=== PATIENT | male | born 1960 | race Hispanic/Latino ===

== ENCOUNTER → 2017-09-17 | Outpatient (CLI) | payer MEDICARE ==
[~2017-09-17] VITALS: Ht 177.8 cm; Wt 89.4 kg
[~2017-09-17] MED LIST: AEC81 PO; AMLO10TA2 PO; ATOR20TA65 PO; CLON0.1T PO; CLOP75TA14 PO; FURO20TA6 PO; HYDR-4153 PO; ISOS30TA6 PO; METO-391 PO; PANT40TA25 PO; REGADENOSON 0.4 MG/5 ML PF SYG IVP SCH
== END | disposition home or self-care (01) ==
LOC: SHCH 09:47
PROVIDERS: ATTEND Internal Medicine Cardiovascular Disease
DX: R09.89 Other specified symptoms and signs involving the circulatory and respiratory systems (principal); R07.9 Chest pain, unspecified
CPT/HCPCS: 78452; 93017; 93880; 96374; A9500 ×2; J2785

== ENCOUNTER → 2017-09-24 | Outpatient (CLI) | payer MEDICARE ==
[~2017-09-24] MED LIST changes: -REGADENOSON 0.4 MG/5 ML PF SYG IVP SCH
== END | disposition home or self-care (01) ==
LOC: SHCH 13:27
PROVIDERS: ATTEND Internal Medicine Cardiovascular Disease
DX: R07.9 Chest pain, unspecified (principal)
CPT/HCPCS: 93306

== ENCOUNTER 2017-10-28 05:55 | Inpatient (IN) | payer MEDICARE ==
[2017-10-26 14:30] VITALS: BP 148/79
[2017-10-26 14:52] LABS: BASOPHILS % (AUTO) 0.2 % (0.0-5.0); EOSINOPHILS % (AUTO) 0.7 % (0.0-8.0); HEMATOCRIT 38.9 % (42-54); LYMPHOCYTES % (AUTO) 9.7 % (21.0-51.0); MEAN CORPUSCULAR HEMOGLOBIN 28.9 pg (27.0-33.0); MEAN CORPUSCULAR HGB CONC 34.3 g/dL (32.0-36.0); MEAN CORPUSCULAR VOLUME 84.3 fL (79-99); MONOCYTES % (AUTO) 5.6 % (3.0-13.0); NEUTROPHILS % (AUTO) 83.8 % (40.0-77.0); NUCLEATED RED BLOOD CELLS 0.1 % (0.0-0.19); PLATELET COUNT (AUTO) 299 K/uL (130-400); RED BLOOD CELL COUNT(AUTO) 4.61 MIL/uL (4.50-6.20); RED CELL DISTRIBUTION WIDTH 14.3 % (11.0-15.5); WHITE BLOOD COUNT (AUTO) 10.3 K/uL (4.8-10.8)
[2017-10-26 15:00] LABS: CREATININE 1.3 mg/dL (0.5-1.5); POTASSIUM 3.8 mmol/L (3.5-5.1)
[2017-10-26 15:04] LABS: INR 0.95 (0.85-1.15); PARTIAL THROMBOPLASTIN TIME 27.6 SEC (26.3-35.5)
[2017-10-26 15:31] LABS: APPEARANCE,URINE Clear (CLEAR); BILIRUBIN,URINE Negative (NEGATIVE); COLOR,URINE Yellow (YELLOW); GLUCOSE, URINE (UA) Negative (NEGATIVE); KETONES,URINE Negative (NEGATIVE); LEUKOCYTE ESTERASE ,URINE Negative (NEGATIVE); NITRATE,URINE Negative (NEGATIVE); OCCULT BLOOD,URINE Negative (NEGATIVE); PROTEIN,URINE POS 1+ (NEGATIVE)
[2017-10-26 15:46] LABS: BACTERIA,URINE Rare /HPF (None Seen); RBC,URINE None Seen /HPF (0-1); WBC,URINE 0-1 /HPF (0-1)
[~2017-10-28] VITALS: Ht 177.8 cm; Wt 87.5 kg
[2017-10-28] VITALS (12 sets, daily range): BP systolic 126–163; BP diastolic 71–96
[~2017-10-28 05:55] MED LIST changes: -CLOP75TA14 PO; -FURO20TA6 PO
[2017-10-28] MEDS ORDERED: ISOVUE-370 50ML VIAL IV ONE (07:13)
[2017-10-28] MEDS ORDERED: IOPAMIDOL-370 100 ML VIAL IV ONE (07:13)
[2017-10-28] MEDS ORDERED: HEPARIN SODIUM 1000UNIT/ML 10ML VIAL ONE ×2 (07:13→07:29)
[2017-10-28] MEDS ORDERED: LIDOCAINE HCL 2% 20ML ONE ×2 (07:14→07:40)
[2017-10-28] MEDS ORDERED: SODIUM CHLORIDE 0.9% 1000ML 1,000 ML IV ONE (07:28)
[2017-10-28] MEDS ORDERED: PANTOPRAZOLE SODIUM 40 MG TABLET.DR PO PRN (08:00)
[2017-10-28] MEDS: SODIUM CHLORIDE 0.9% 10 ML VIAL IVP SCH ×2 (08:00→16:28)
[2017-10-28] MEDS: AMLODIPINE BESYLATE 5 MG TAB PO SCH (09:58)
[2017-10-28] MEDS: ASPIRIN 81 MG EC TAB PO SCH (09:58)
[2017-10-28] MEDS: HYDRALAZINE HCL 25 MG TABLET PO SCH ×2 (09:58→21:33)
[2017-10-28] MEDS: METOPROLOL TARTRATE 25 MG TAB PO SCH ×2 (09:58→21:33)
[2017-10-28] MEDS ORDERED: CLONIDINE HCL 0.1 MG TABLET PO SCH (17:00)
[2017-10-28] MEDS ORDERED: ATORVASTATIN CALCIUM 20 MG TABLET PO SCH (17:00)
[2017-10-28] MEDS ORDERED: ISOSORBIDE MONO 30MG TAB SR PO SCH (17:00)
[2017-10-28 18:14] LABS: CHOLESTEROL 136 mg/dL (<200); HDL CHOLESTEROL 44 mg/dL (29-71); LDL DIRECT 73 mg/dL (0-99); TRIGLYCERIDES 119 mg/dL (30-200)
[2017-10-28 18:15] LABS: HEMOGLOBIN A1C 5.9 % (4.0-6.0)
[2017-10-29] VITALS (12 sets, daily range): BP systolic 108–146; BP diastolic 60–85
[2017-10-29] MEDS: SODIUM CHLORIDE 0.9% 10 ML VIAL IVP SCH ×3 (00:04→15:17)
[2017-10-29 05:41] LABS: BASOPHILS % (AUTO) 0.5 % (0.0-5.0); EOSINOPHILS % (AUTO) 1.3 % (0.0-8.0); LYMPHOCYTES % (AUTO) 19.4 % (21.0-51.0); MEAN CORPUSCULAR HEMOGLOBIN 28.4 pg (27.0-33.0); MEAN CORPUSCULAR HGB CONC 33.9 g/dL (32.0-36.0); MEAN CORPUSCULAR VOLUME 83.9 fL (79-99); MONOCYTES % (AUTO) 7.6 % (3.0-13.0); NEUTROPHILS % (AUTO) 71.2 % (40.0-77.0); PLATELET COUNT (AUTO) 280 K/uL (130-400); RED BLOOD CELL COUNT(AUTO) 4.53 MIL/uL (4.50-6.20); RED CELL DISTRIBUTION WIDTH 14.3 % (11.0-15.5)
[2017-10-29 05:50] LABS: INR 0.97 (0.85-1.15); PARTIAL THROMBOPLASTIN TIME 28.1 SEC (26.3-35.5); PROTHROMBIN TIME 10.2 SEC (9.6-11.6)
[2017-10-29 05:53] LABS: CREATININE 1.5 mg/dL (0.5-1.5); POTASSIUM 3.9 mmol/L (3.5-5.1)
[2017-10-29] MEDS ORDERED: CEFUROXIME 1.5GM+NS 100ML 100 ML IV SCH (07:00)
[2017-10-29] MEDS: CEFUROXIME SODIUM 1.5 GM VIAL IVP SCH ×3 (07:00→23:41)
[2017-10-29] MEDS ORDERED: ESMOLOL HCL 10 MG/ML 10 ML VIAL ONE (08:41)
[2017-10-29] MEDS ORDERED: NOREPINEPHRINE BITARTRATE 1 MG/1 ML ML IV ONE (08:42)
[2017-10-29] MEDS ORDERED: LIDOCAINE PF 2% 5ML ABBOJECT ONE (08:42)
[2017-10-29] MEDS ORDERED: PROTAMINE SULFATE 10 MG/ML 25ML VIAL IV ONE (08:42)
[2017-10-29] MEDS ORDERED: NEOSTIGMINE 5MG/5ML SYR IV ONE (08:42)
[2017-10-29] MEDS ORDERED: EPINEPHRINE 1 MG/ML AMPULE ONE (08:42)
[2017-10-29] MEDS ORDERED: MIDAZOLAM HCL 1 MG/ML 5ML VIAL ONE ×2 (08:42→20:43)
[2017-10-29] MEDS ORDERED: PROPOFOL 10 MG/ML 20ML VIAL IV ONE (08:42)
[2017-10-29] MEDS ORDERED: MILRINONE-D5W 20 MG/100 ML 0 ML IV ONE (08:42)
[2017-10-29] MEDS ORDERED: AMINOCAPROIC ACID 250 MG/ML 20 ML VIAL IV ONE (08:42)
[2017-10-29] MEDS ORDERED: ROCURONIUM BROMIDE 10MG/1ML 5ML VL ONE (08:42)
[2017-10-29] MEDS ORDERED: HEPARIN SODIUM 1000UNIT/ML 10ML VIAL ONE (08:42)
[2017-10-29] MEDS: AMLODIPINE BESYLATE 5 MG TAB PO SCH (09:00)
[2017-10-29] MEDS: ASPIRIN 81 MG EC TAB PO SCH (09:00)
[2017-10-29] MEDS: METOPROLOL TARTRATE 25 MG TAB PO SCH ×2 (09:00→09:02)
[2017-10-29] MEDS: HYDRALAZINE HCL 25 MG TABLET PO SCH (09:00)
[2017-10-29] MEDS ORDERED: PAPAVERINE HCL 30 MG/ML 2ML VIAL ONE (09:13)
[2017-10-29] MEDS ORDERED: BACITRACIN 50,000 UNIT VIAL ONE ×2 (09:13→20:04)
[2017-10-29] MEDS ORDERED: OCTYL 2-CYANOACRYLATE 1 EACH TP ONE (09:13)
[2017-10-29] MEDS ORDERED: NITROGLYCERIN 50 MG/D5% WATER 1 BOT ONE (09:15)
[2017-10-29] MEDS ORDERED: AMIODARONE HCL 50 MG/ML 3 ML VIAL ONE (09:15)
[2017-10-29] MEDS ORDERED: EPINEPHRINE 1 MG/ML 30ML VIAL IJ ONE (09:19)
[2017-10-29] MEDS ORDERED: SODIUM BICARB 50MEQ 50ML VIAL ONE ×7 (10:25→23:29)
[2017-10-29] MEDS ORDERED: SODIUM CHLORIDE 0.9% 1000ML 1,000 ML IV ONE (11:36)
[2017-10-29] MEDS ORDERED: FENTANYL CITRATE PF 50 MCG/1 ML 5ML AMP IV ONE ×3 (13:41→16:45)
[2017-10-29] MEDS ORDERED: HEPARIN SODIUM 10000 UNIT/ML 1ML VIAL IJ ONE (14:12)
[2017-10-29] MEDS ORDERED: THROMBIN-JMI 5000 UNIT/VIAL TP ONE (14:13)
[2017-10-29] MEDS ORDERED: SODIUM CHLORIDE 0.9% 500ML 500 ML IV SCH (15:55)
[2017-10-29] MEDS ORDERED: POTASSIUM PHOS 15 mMOL+NS250ML 250 ML IV PRN (16:00)
[2017-10-29] MEDS ORDERED: GLUCAGON 1MG KIT 1 MG ML IM PRN (16:00)
[2017-10-29] MEDS ORDERED: ACETAMINOPHEN 650 MG SUPPOSITORY RC PRN (16:00)
[2017-10-29] MEDS ORDERED: DEXTROSE 50%-WATER 50 ML DISP.SYRIN IV PRN (16:00)
[2017-10-29] MEDS ORDERED: CALCIUM GLUCONATE 1 GM in SODIUM CHLORIDE 0.9% 50 ML IV PRN (16:00)
[2017-10-29] MEDS ORDERED: MORPHINE SULFATE 4 MG/1ML SYG IV PRN ×2 (16:00)
[2017-10-29] MEDS ORDERED: ALBUMIN (HUMAN) 5% 250 ML IV PRN (16:00)
[2017-10-29] MEDS ORDERED: SODIUM CHLORIDE 0.9% 10 ML VIAL IVP PRN (16:00)
[2017-10-29] MEDS ORDERED: ACETAMINOPHEN 325 MG TAB PO PRN (16:00)
[2017-10-29] MEDS ORDERED: EPINEPHRINE 2 MG in SODIUM CHLORIDE 0.9% 250 ML IV PRN (16:00)
[2017-10-29] MEDS ORDERED: SODIUM CHLORIDE 0.9% 1000ML 1,000 ML IV SCH (16:00)
[2017-10-29] MEDS ORDERED: SODIUM CHLORIDE 0.9% 250 ML IV PRN (16:00)
[2017-10-29] MEDS ORDERED: NITROGLYCERIN 50 MG/D5% WATER 250 BOT IV SCH (16:00)
[2017-10-29] MEDS ORDERED: INSULIN REGULAR, HUMAN 3ML 100 UNIT in SODIUM CHLORIDE 0.9% 99 ML IV SCH ×2 (16:00)
[2017-10-29] MEDS ORDERED: NICARDIPINE HCL 100 MG in SODIUM CHLORIDE 0.9% 100 ML IV PRN (16:00)
[2017-10-29] MEDS ORDERED: TRAMADOL HCL 50 MG TABLET PO PRN (16:00)
[2017-10-29] MEDS ORDERED: SODIUM BICARB 8.4% 50ML SYRINGE IV PRN (16:00)
[2017-10-29] MEDS ORDERED: AMINOCAPROIC ACID 15,000 MG in SODIUM CHLORIDE 0.9% 250 ML IV SCH (16:00)
[2017-10-29] MEDS ORDERED: ONDANSETRON HCL 4 MG/2 ML VIAL IV PRN (16:00)
[2017-10-29] MEDS ORDERED: PROPOFOL 1000 MG/100 ML 100 ML IV PRN (16:00)
[2017-10-29] MEDS ORDERED: CEFUROXIME SODIUM 1.5 GM VIAL ONE (16:06)
[2017-10-29 16:07] LABS: ABG BASE EXCESS -2.2 mmol/L (-2.0-3.0); ABG HCO3 22.4 mmol/L (21.0-28.0); ABG OXYGEN SATURATION 99.1 % (95.0-99.0); ABG PCO2 38 mmHg (35-48)
[2017-10-29 16:44] LABS: ABG BASE EXCESS -5.1 mmol/L (-2.0-3.0); ABG OXYGEN SATURATION 99.4 % (95.0-99.0); ABG PCO2 33 mmHg (35-48)
[2017-10-29] MEDS: POTASSIUM CHLORIDE 20MEQ/100ML 100 ML IV PRN ×5 (17:29→23:42)
[2017-10-29] MEDS ORDERED: NOREPINEPHRINE 4MG/NS 250ML 250 ML IV SCH (17:30)
[2017-10-29 17:54] LABS: ABG BASE EXCESS -6.5 mmol/L (-2.0-3.0); ABG HCO3 18.6 mmol/L (21.0-28.0); ABG OXYGEN SATURATION 98.4 % (95.0-99.0); ABG PCO2 36 mmHg (35-48)
[2017-10-29 18:14] LABS: HEMATOCRIT 35.8 % (42-54); MEAN CORPUSCULAR HEMOGLOBIN 28.4 pg (27.0-33.0); MEAN CORPUSCULAR HGB CONC 33.7 g/dL (32.0-36.0); MEAN CORPUSCULAR VOLUME 84.2 fL (79-99); PLATELET COUNT (AUTO) 304 K/uL (130-400); RED BLOOD CELL COUNT(AUTO) 4.25 MIL/uL (4.50-6.20); RED CELL DISTRIBUTION WIDTH 14.3 % (11.0-15.5); WHITE BLOOD COUNT (AUTO) 24.3 K/uL (4.8-10.8)
[2017-10-29 18:26] LABS: CREATININE 1.5 mg/dL (0.5-1.5); MAGNESIUM 1.5 mg/dL (1.80-2.40); PHOSPHORUS 4.3 mg/dL (2.5-4.9); POTASSIUM 3.5 mmol/L (3.5-5.1)
[2017-10-29] MEDS: MAGNESIUM 2GM PREMIX 50ML 50 ML IV PRN (19:08)
[2017-10-29 19:13] LABS: ABG BASE EXCESS -5.9 mmol/L (-2.0-3.0); ABG HCO3 18.6 mmol/L (21.0-28.0); ABG OXYGEN SATURATION 97.2 % (95.0-99.0); ABG PCO2 34 mmHg (35-48)
[2017-10-29 20:08] LABS: ABG HCO3 26.3 mmol/L (21.0-28.0); ABG PCO2 36 mmHg (35-48)
[2017-10-29 21:02] LABS: ABG BASE EXCESS 1.8 mmol/L (-2.0-3.0); ABG HCO3 24.5 mmol/L (21.0-28.0); ABG OXYGEN SATURATION 96.1 % (95.0-99.0); ABG PCO2 33 mmHg (35-48)
[2017-10-29] MEDS ORDERED: CALCIUM GLUCONATE 1 GM/10 ML VIAL IV ONE ×2 (21:10→23:37)
[2017-10-29] MEDS ORDERED: SODIUM CHLORIDE 0.9% 100 ML IV ONE ×2 (21:10→23:38)
[2017-10-29] MEDS: TRAMADOL HCL 50 MG TABLET PO PRN (22:37)
[2017-10-29] MEDS: KETOROLAC TROMETHAMINE 30MG/ML IV PRN (22:38)
[2017-10-29 23:27] LABS: ABG BASE EXCESS -1.7 mmol/L (-2.0-3.0); ABG HCO3 21.2 mmol/L (21.0-28.0); ABG OXYGEN SATURATION 98.1 % (95.0-99.0); ABG PCO2 30 mmHg (35-48)
[2017-10-30] VITALS (24 sets, daily range): BP systolic 94–161; BP diastolic 54–89
[2017-10-30] MEDS ORDERED: CEFUROXIME 1.5GM+NS 100ML 100 ML IV SCH
[2017-10-30 02:15] LABS: ABG BASE EXCESS 4.3 mmol/L (-2.0-3.0); ABG HCO3 29.2 mmol/L (21.0-28.0); ABG OXYGEN SATURATION 98.1 % (95.0-99.0); ABG PCO2 45 mmHg (35-48)
[2017-10-30] MEDS ORDERED: CALCIUM GLUCONATE 1 GM/10 ML VIAL IV ONE ×2 (02:16→04:43)
[2017-10-30] MEDS ORDERED: SODIUM CHLORIDE 0.9% 100 ML IV ONE ×2 (02:16→04:43)
[2017-10-30] MEDS: POTASSIUM CHLORIDE 20MEQ/100ML 100 ML IV PRN ×2 (02:28→04:46)
[2017-10-30 04:26] LABS: HEMATOCRIT 31.4 % (42-54); MEAN CORPUSCULAR HEMOGLOBIN 29.6 pg (27.0-33.0); MEAN CORPUSCULAR HGB CONC 35.6 g/dL (32.0-36.0); MEAN CORPUSCULAR VOLUME 83.1 fL (79-99); PLATELET COUNT (AUTO) 274 K/uL (130-400); RED BLOOD CELL COUNT(AUTO) 3.78 MIL/uL (4.50-6.20); RED CELL DISTRIBUTION WIDTH 14.2 % (11.0-15.5); WHITE BLOOD COUNT (AUTO) 12.2 K/uL (4.8-10.8)
[2017-10-30 04:31] LABS: CREATININE 1.2 mg/dL (0.5-1.5); PHOSPHORUS 1.4 mg/dL (2.5-4.9); POTASSIUM 4.5 mmol/L (3.5-5.1)
[2017-10-30 04:32] LABS: ABG HCO3 23.9 mmol/L (21.0-28.0); ABG OXYGEN SATURATION 96.9 % (95.0-99.0); ABG PCO2 41 mmHg (35-48)
[2017-10-30] MEDS ORDERED: SODIUM BICARB 50MEQ 50ML VIAL ONE (04:41)
[2017-10-30 05:40] LABS: ABG BASE EXCESS 5.3 mmol/L (-2.0-3.0); ABG HCO3 30.8 mmol/L (21.0-28.0); ABG PCO2 49 mmHg (35-48)
[2017-10-30] MEDS ORDERED: ONDANSETRON HCL MDV 20ML 2 MG/ML VIAL ONE (05:58)
[2017-10-30] MEDS: TRAMADOL HCL 50 MG TABLET PO PRN (08:43)
[2017-10-30] MEDS: PANTOPRAZOLE SODIUM 40 MG TABLET.DR PO SCH (08:43)
[2017-10-30] MEDS: CLOPIDOGREL BISULFATE 75 MG TAB PO SCH (09:37)
[2017-10-30] MEDS: METOPROLOL TARTRATE 25 MG TAB PO SCH ×2 (09:37→20:45)
[2017-10-30] MEDS: ASPIRIN 81MG TAB.CHEW PO SCH (09:37)
[2017-10-30] MEDS: ISOSORBIDE MONO 30MG TAB SR PO SCH (09:37)
[2017-10-30 10:19] LABS: CREATINE KINASE MB 208.8 ng/mL (0.5-3.6)
[2017-10-30 11:13] LABS: TROPONIN I 52.46 ng/mL (0.00-0.06)
[2017-10-30] MEDS: CEFUROXIME SODIUM 1.5 GM VIAL IVP SCH (12:40)
[2017-10-30] MEDS: FUROSEMIDE 10 MG/ML 2ML VIAL IV SCH (15:57)
[2017-10-30] MEDS: KETOROLAC TROMETHAMINE 30MG/ML IV PRN (19:42)
[2017-10-30] MEDS: ATORVASTATIN CALCIUM 20 MG TABLET PO SCH (20:45)
[2017-10-31] VITALS (17 sets, daily range): BP systolic 106–148; BP diastolic 63–93
[2017-10-31] MEDS: CEFUROXIME SODIUM 1.5 GM VIAL IVP SCH (00:09)
[2017-10-31] MEDS: FUROSEMIDE 10 MG/ML 2ML VIAL IV SCH (03:09)
[2017-10-31 04:35] LABS: HEMATOCRIT 29.7 % (42-54); MEAN CORPUSCULAR HEMOGLOBIN 28.9 pg (27.0-33.0); MEAN CORPUSCULAR VOLUME 85.1 fL (79-99); PLATELET COUNT (AUTO) 183 K/uL (130-400); RED BLOOD CELL COUNT(AUTO) 3.49 MIL/uL (4.50-6.20); RED CELL DISTRIBUTION WIDTH 14.3 % (11.0-15.5)
[2017-10-31 04:49] LABS: CREATININE 1.2 mg/dL (0.5-1.5); MAGNESIUM 1.9 mg/dL (1.80-2.40); PHOSPHORUS 3.2 mg/dL (2.5-4.9); POTASSIUM 3.6 mmol/L (3.5-5.1)
[2017-10-31] MEDS: POTASSIUM CHLORIDE 20MEQ/100ML 100 ML IV PRN (04:58)
[2017-10-31] MEDS: MAGNESIUM 2GM PREMIX 50ML 50 ML IV PRN (04:59)
[2017-10-31] MEDS: ISOSORBIDE MONO 30MG TAB SR PO SCH (08:48)
[2017-10-31] MEDS: CLOPIDOGREL BISULFATE 75 MG TAB PO SCH (08:48)
[2017-10-31] MEDS: ASPIRIN 81MG TAB.CHEW PO SCH (08:48)
[2017-10-31] MEDS: PANTOPRAZOLE SODIUM 40 MG TABLET.DR PO SCH (08:48)
[2017-10-31] MEDS: METOPROLOL TARTRATE 25 MG TAB PO SCH ×2 (08:48→21:29)
[2017-10-31] MEDS: TRAMADOL HCL 50 MG TABLET PO PRN ×2 (08:50→20:09)
[2017-10-31] MEDS: FUROSEMIDE 20 MG TABLET PO SCH (17:26)
[2017-10-31] MEDS ORDERED: ENOXAPARIN SODIUM 30 MG/0.3 ML SQ SCH (21:00)
[2017-10-31] MEDS: ATORVASTATIN CALCIUM 20 MG TABLET PO SCH (21:29)
[2017-11-01] MEDS: TRAMADOL HCL 50 MG TABLET PO PRN ×3 (03:28→16:15)
[2017-11-01 03:31] VITALS: BP 131/77
[2017-11-01 07:00] VITALS: BP 121/81
[2017-11-01] MEDS: METOPROLOL TARTRATE 25 MG TAB PO SCH ×2 (07:39→20:43)
[2017-11-01] MEDS: ISOSORBIDE MONO 30MG TAB SR PO SCH (07:39)
[2017-11-01] MEDS: ASPIRIN 81MG TAB.CHEW PO SCH (07:40)
[2017-11-01] MEDS: CLOPIDOGREL BISULFATE 75 MG TAB PO SCH (07:40)
[2017-11-01] MEDS: FUROSEMIDE 20 MG TABLET PO SCH ×2 (07:40→16:14)
[2017-11-01] MEDS: PANTOPRAZOLE SODIUM 40 MG TABLET.DR PO SCH (07:40)
[2017-11-01] MEDS ORDERED: LACTULOSE 20 GM/30 ML UDCUP PO PRN (09:15)
[2017-11-01 11:00] VITALS: BP 120/75
[2017-11-01 16:00] VITALS: BP 142/76
[2017-11-01 19:50] VITALS: BP 123/85
[2017-11-01] MEDS: ATORVASTATIN CALCIUM 20 MG TABLET PO SCH (20:43)
[2017-11-01] MEDS ORDERED: ENOXAPARIN SODIUM 30 MG/0.3 ML SQ SCH (22:00)
[2017-11-01 23:32] VITALS: BP 128/88
[2017-11-02 03:55] VITALS: BP 127/83
[2017-11-02 07:00] VITALS: BP 129/84
[2017-11-02] MEDS: PANTOPRAZOLE SODIUM 40 MG TABLET.DR PO SCH (07:30)
[2017-11-02] MEDS: METOPROLOL TARTRATE 25 MG TAB PO SCH (07:30)
[2017-11-02] MEDS: ISOSORBIDE MONO 30MG TAB SR PO SCH (07:30)
[2017-11-02] MEDS: CLOPIDOGREL BISULFATE 75 MG TAB PO SCH (07:30)
[2017-11-02] MEDS: FUROSEMIDE 20 MG TABLET PO SCH (07:30)
[2017-11-02] MEDS: ASPIRIN 81MG TAB.CHEW PO SCH (07:30)
[2017-11-02] MEDS ORDERED: FURO20TA6 PO (09:37)
[2017-11-02] MEDS ORDERED: CLOP75TA14 PO (09:37)
[2017-11-02] MEDS ORDERED: MAGNESIUM CITRATE 296 ML SOLUTION PO ONE (09:45)
[2017-11-02 11:00] VITALS: BP 152/86
== END 2017-11-02 12:50 | disposition home or self-care (01) | DRG 234 ==
LOC: DAH 05:55 → 4CH 05:56 → DAH 05:56 → 4CH 08:31 → 2CV 10-29 16:28 → 2CH 10-30 05:39 → 2DH 10-31 17:33
PROVIDERS: ADMIT Internal Medicine; ATTEND Internal Medicine
PROC: 4A023N7 Measurement of Cardiac Sampling and Pressure, Left Heart, Percutaneous Approach (ICD-10-PCS; 2017-10-28)
PROC: B2111ZZ Fluoroscopy of Multiple Coronary Arteries using Low Osmolar Contrast (ICD-10-PCS; 2017-10-28)
PROC: B2151ZZ Fluoroscopy of Left Heart using Low Osmolar Contrast (ICD-10-PCS; 2017-10-28)
PROC: 06BQ4ZZ Excision of Left Saphenous Vein, Percutaneous Endoscopic Approach (ICD-10-PCS; 2017-10-29)
PROC: 0WJC0ZZ Inspection of Mediastinum, Open Approach (ICD-10-PCS; 2017-10-29)
PROC: 021209W Bypass Coronary Artery, Three Arteries from Aorta with Autologous Venous Tissue, Open Approach (ICD-10-PCS; principal; 2017-10-29 13:00)
PROC: 02100Z9 Bypass Coronary Artery, One Artery from Left Internal Mammary, Open Approach (ICD-10-PCS; 2017-10-29 13:00)
DX: I25.119 Atherosclerotic heart disease of native coronary artery with unspecified angina pectoris (principal); I69.351 Hemiplegia and hemiparesis following cerebral infarction affecting right dominant side; E78.5 Hyperlipidemia, unspecified; K21.9 Gastro-esophageal reflux disease without esophagitis; R06.00 Dyspnea, unspecified; E11.9 Type 2 diabetes mellitus without complications; R94.39 Abnormal result of other cardiovascular function study; I10 Essential (primary) hypertension; Z83.3 Family history of diabetes mellitus; Z79.899 Other long term (current) drug therapy; Z79.82 Long term (current) use of aspirin
CPT/HCPCS: 36415; 71045; 80048; 80061; 81001; 82330; 82435; 82550; 82553; 82803; 82947; 82948; 83036; 83605; 83735; 83874; 84100; 84132; 84295; 84484; 85018; 85025; 85027; 85347; 85610; 85730; 86850; 86900; 86901; 86922; 93005; 93458; 93880; 94002; 94003; 94010; 94150; 97039; A4218; A4351; A4606; A7048; C1757; C1894; J0171; J0282; J0610; J0697; J1644; J1650; J1815; J1885; J1940; J2001; J2250; J2260; J2440; J2704; J2710; J2720; J3010; J3475; J3480; J3490; J7030; J7040; Q9967

== ENCOUNTER 2017-11-06 00:35 | Emergency (ER) | payer MEDICARE ==
[~2017-11-06 00:35] MED LIST changes: -CLON0.1T PO; +CLOP75TA14 PO; +FURO20TA6 PO; -HYDR-4153 PO; -ISOS30TA6 PO
[2017-11-06 01:36] LABS: BASOPHILS % (AUTO) 0.5 % (0.0-5.0); EOSINOPHILS % (AUTO) 1.5 % (0.0-8.0); HEMATOCRIT 31.6 % (42-54); LYMPHOCYTES % (AUTO) 10.4 % (21.0-51.0); MEAN CORPUSCULAR HEMOGLOBIN 28.7 pg (27.0-33.0); MEAN CORPUSCULAR VOLUME 84.3 fL (79-99); MONOCYTES % (AUTO) 8.2 % (3.0-13.0); NEUTROPHILS % (AUTO) 79.4 % (40.0-77.0); PLATELET COUNT (AUTO) 353 K/uL (130-400); RED BLOOD CELL COUNT(AUTO) 3.75 MIL/uL (4.50-6.20); RED CELL DISTRIBUTION WIDTH 14.6 % (11.0-15.5); WHITE BLOOD COUNT (AUTO) 11.9 K/uL (4.8-10.8)
[2017-11-06 01:47] LABS: CREATININE 1.1 mg/dL (0.5-1.5); POTASSIUM 3.9 mmol/L (3.5-5.1)
[2017-11-06 01:52] LABS: INR 0.95 (0.85-1.15); PARTIAL THROMBOPLASTIN TIME 26.6 SEC (26.3-35.5)
[2017-11-06 02:00] LABS: ALBUMIN 2.7 g/dL (3.5-5.0); BILIRUBIN,TOTAL 0.5 mg/dL (0.2-1.0); CREATINE KINASE MB 1.3 ng/mL (0.5-3.6); TOTAL PROTEIN, SERUM 7.5 g/dL (6.0-8.3)
[2017-11-06] MEDS ORDERED: CYCLOBENZAPRINE HCL 10 MG TABLET ONE (02:51)
[2017-11-06] MEDS ORDERED: KETOROLAC TROMETHAMINE 30MG/ML ONE (02:51)
== END 2017-11-06 04:06 | disposition home or self-care (01) ==
LOC: EDH 00:35
DX: M54.2 Cervicalgia (principal); I10 Essential (primary) hypertension; Z86.73 Personal history of transient ischemic attack (TIA), and cerebral infarction without residual deficits; Z95.1 Presence of aortocoronary bypass graft; Z72.0 Tobacco use
CPT/HCPCS: 36415; 71045; 72125; 80053; 82550; 82553; 84484; 85025; 85610; 85730; 93005; 96374; 99285; J1885

== ENCOUNTER 2018-06-14 11:08 | Emergency (ER) | payer MEDICARE ==
[~2018-06-14 11:08] MED LIST changes: -AMLO10TA2 PO; +AMLO10TA7 PO
[2018-06-14] MEDS ORDERED: CLONIDINE HCL 0.1 MG TABLET ONE (11:30)
[2018-06-14] MEDS ORDERED: TRAMADOL HCL 50 MG TABLET ONE ×2 (11:30→13:41)
[2018-06-14 12:02] LABS: BASOPHILS % (AUTO) 0.5 % (0.0-5.0); EOSINOPHILS % (AUTO) 0.6 % (0.0-8.0); HEMATOCRIT 42.6 % (42-54); LYMPHOCYTES % (AUTO) 13.5 % (21.0-51.0); MEAN CORPUSCULAR HEMOGLOBIN 29.6 pg (27.0-33.0); MEAN CORPUSCULAR HGB CONC 33.9 g/dL (32.0-36.0); MEAN CORPUSCULAR VOLUME 87.2 fL (79-99); MONOCYTES % (AUTO) 7.1 % (3.0-13.0); NEUTROPHILS % (AUTO) 78.3 % (40.0-77.0); PLATELET COUNT (AUTO) 271 K/uL (130-400); RED BLOOD CELL COUNT(AUTO) 4.89 MIL/uL (4.50-6.20); RED CELL DISTRIBUTION WIDTH 13.6 % (11.0-15.5)
[2018-06-14 12:13] LABS: APPEARANCE,URINE Clear (CLEAR); BILIRUBIN,URINE Negative (NEGATIVE); COLOR,URINE Yellow (YELLOW); GLUCOSE, URINE (UA) TRACE mg/dL (NEGATIVE); KETONES,URINE Negative (NEGATIVE); LEUKOCYTE ESTERASE ,URINE Negative (NEGATIVE); NITRATE,URINE Negative (NEGATIVE); OCCULT BLOOD,URINE Negative (NEGATIVE); PROTEIN,URINE 300 (NEGATIVE)
[2018-06-14 12:26] LABS: CREATININE 1.2 mg/dL (0.5-1.5); INR 0.98 (0.85-1.15); PARTIAL THROMBOPLASTIN TIME 31.8 SEC (26.3-35.5); PROTHROMBIN TIME 10.3 SEC (9.6-11.6)
[2018-06-14 12:31] LABS: ALBUMIN 3.6 g/dL (3.5-5.0); BILIRUBIN,TOTAL 0.7 mg/dL (0.2-1.0); TOTAL PROTEIN, SERUM 8.2 g/dL (6.0-8.3)
[2018-06-14 12:36] LABS: BACTERIA,URINE Rare /HPF (None Seen); MUCUS,URINE Few LPF (None Seen); RBC,URINE 0-1 /HPF (0-1); SQUAMOUS EPITHELIAL CELL,UR Rare /HPF (0-2); WBC,URINE 0-1 /HPF (0-1)
[2018-06-14 12:42] LABS: B-TYPE NATRIURETIC PEPTIDE 421 pg/mL (0-100)
[2018-06-14] MEDS ORDERED: PENICILLIN V POTASSIUM 500 MG TABLET ONE (13:41)
== END 2018-06-14 13:56 | disposition home or self-care (01) ==
LOC: EDH 11:08
DX: K02.9 Dental caries, unspecified (principal); I10 Essential (primary) hypertension; I25.810 Atherosclerosis of coronary artery bypass graft(s) without angina pectoris; Z86.73 Personal history of transient ischemic attack (TIA), and cerebral infarction without residual deficits; Z88.8 Allergy status to other drugs, medicaments and biological substances
CPT/HCPCS: 36415; 71045; 80053; 81001; 83880; 84484; 85025; 85610; 85651; 85730; 86140; 87804; 93005

== ENCOUNTER 2018-09-16 11:31 | Emergency (ER) | payer MEDICARE ==
[2018-09-16 12:05] LABS: BASOPHILS % (AUTO) 0.2 % (0.0-5.0); EOSINOPHILS % (AUTO) 0.1 % (0.0-8.0); HEMATOCRIT 37.8 % (42-54); LYMPHOCYTES % (AUTO) 12.4 % (21.0-51.0); MEAN CORPUSCULAR HEMOGLOBIN 29.6 pg (27.0-33.0); MEAN CORPUSCULAR VOLUME 87.1 fL (79-99); MONOCYTES % (AUTO) 8.9 % (3.0-13.0); NEUTROPHILS % (AUTO) 78.4 % (40.0-77.0); PLATELET COUNT (AUTO) 210 K/uL (130-400); RED BLOOD CELL COUNT(AUTO) 4.34 MIL/uL (4.50-6.20); RED CELL DISTRIBUTION WIDTH 14.6 % (11.0-15.5); WHITE BLOOD COUNT (AUTO) 13.4 K/uL (4.8-10.8)
[2018-09-16 12:13] LABS: CREATININE 1.6 mg/dL (0.5-1.5); POTASSIUM 3.2 mmol/L (3.5-5.1)
[2018-09-16 12:18] LABS: ALBUMIN 3.4 g/dL (3.5-5.0); BILIRUBIN,TOTAL 1.1 mg/dL (0.2-1.0); TOTAL PROTEIN, SERUM 8.1 g/dL (6.0-8.3)
[2018-09-16] MEDS ORDERED: SODIUM CHLORIDE 0.9% 1000ML 1,000 ML IV ONE (12:48)
[2018-09-16 13:54] LABS: APPEARANCE,URINE Clear (CLEAR); BILIRUBIN,URINE Negative (NEGATIVE); COLOR,URINE Yellow (YELLOW); GLUCOSE, URINE (UA) Negative (NEGATIVE); KETONES,URINE Negative (NEGATIVE); LEUKOCYTE ESTERASE ,URINE Negative (NEGATIVE); NITRATE,URINE Negative (NEGATIVE); OCCULT BLOOD,URINE Negative (NEGATIVE); PH,URINE 5.5 (5.0-8.0); PROTEIN,URINE POS 2+ mg/dL (NEGATIVE)
[2018-09-16 14:27] LABS: RBC,URINE 0-1 /HPF (0-1)
[2018-09-16 14:28] LABS: BACTERIA,URINE Rare /HPF (None Seen); COARSE GRANULAR CASTS,URINE 0-2 /LPF (None Seen); SQUAMOUS EPITHELIAL CELL,UR Rare /HPF (0-2); WBC,URINE 0-1 /HPF (0-1)
== END 2018-09-16 16:49 | disposition home or self-care (01) ==
LOC: EDH 11:31
DX: B34.9 Viral infection, unspecified (principal); I10 Essential (primary) hypertension; E78.5 Hyperlipidemia, unspecified; Z79.899 Other long term (current) drug therapy
CPT/HCPCS: 36415; 71045; 80053; 81001; 83690; 84484; 85025; 87804 ×2; 87880; 93005; 99284; J7030

== ENCOUNTER → 2023-11-19 | Outpatient (CLI) | payer OTHER ==
[~2023-11-19] MED LIST changes: -AMLO10TA7 PO; -ATOR20TA65 PO; -CLOP75TA14 PO; +EZET10TA48 PO; -FURO20TA6 PO; +HYDR25 PO; +METF500S9 PO; -METO-391 PO; +METO-408 PO; +NIFE-40 PO; -PANT40TA25 PO; +ROSU40TA70 PO; +TELM80TA10 PO; +VALA500T42 PO
[2023-11-19 15:34] LABS: BASOPHILS # (AUTO) 0.06 K/uL (0.00-0.20); BASOPHILS % (AUTO) 0.8 % (0.0-5.0); EOSINOPHILS % (AUTO) 2.6 % (0.0-8.0); HEMATOCRIT 44.8 % (42-54); IMMATURE GRANULOCYTE ABSOLUTE 0.02 K/uL (0-1); LYMPHOCYTES # (AUTO) 1.9 K/uL (1.0-4.8); LYMPHOCYTES % (AUTO) 25.1 % (21.0-51.0); MEAN CORPUSCULAR HEMOGLOBIN 29.1 pg (27.0-33.0); MEAN CORPUSCULAR HGB CONC 32.1 g/dL (32.0-36.0); MEAN CORPUSCULAR VOLUME 90.7 fL (79-99); MONOCYTES # (AUTO) 0.4 K/uL (0.1-1.0); MONOCYTES % (AUTO) 5.3 % (3.0-13.0); NEUTROPHILS # (AUTO) 5.1 K/uL (1.8-7.7); NEUTROPHILS % (AUTO) 65.9 % (40.0-77.0); PLATELET COUNT (AUTO) 338 K/uL (130-400); RED BLOOD CELL COUNT(AUTO) 4.94 MIL/uL (4.50-6.20); RED CELL DISTRIBUTION WIDTH 12.8 % (11.0-15.5); WHITE BLOOD COUNT (AUTO) 7.7 K/uL (4.8-10.8)
[2023-11-19 15:55] LABS: BILIRUBIN,TOTAL 0.8 mg/dL (0.2-1.0); CREATININE 1.9 mg/dL (0.5-1.3); POTASSIUM 4.2 mmol/L (3.5-5.1); TOTAL PROTEIN, SERUM 8.8 g/dL (6.0-8.3)
== END | disposition home or self-care (01) ==
LOC: LAB 11:29
PROVIDERS: ATTEND Physician Assistant
DX: I10 Essential (primary) hypertension (principal)
CPT/HCPCS: 36415; 80053; 85025

== ENCOUNTER → 2023-12-14 | Outpatient (CLI) | payer OTHER | END | disposition home or self-care (01) | LOC: RAH 14:36 | PROVIDERS: ATTEND Internal Medicine Nephrology | DX: N40.0 Benign prostatic hyperplasia without lower urinary tract symptoms (principal); N18.9 Chronic kidney disease, unspecified | CPT/HCPCS: 76770 ==

== ENCOUNTER → 2024-08-25 | Outpatient (CLI) | payer OTHER ==
[~2024-08-25] MED LIST changes: -ROSU40TA70 PO; +ROSU40TA88 PO
--- NOTE | 2024-08-25 14:32 | HMCIMG ---
Superficial ultrasound for possible hematoma- right neck Clinical Information: Lump Comparison: None Findings: No fluid collections or masses are seen. Significantly, there is no evidence of hematoma. No increased fluid throughout the visualized tissue planes is identified. No lymphadenopathy is identified. Benign-appearing lymph nodes are seen. Impression: No evidence of hematoma or fluid collections or other abnormalities.
== END | disposition home or self-care (01) ==
LOC: RAH 12:52
PROVIDERS: ATTEND Internal Medicine
DX: R22.1 Localized swelling, mass and lump, neck (principal)
CPT/HCPCS: 76536

== ENCOUNTER 2024-10-08 14:36 | Emergency (ER) | payer OTHER ==
[~2024-10-08] VITALS: Ht 177.8 cm; Wt 88.9 kg
--- NOTE | 2024-10-08 14:59 | ERN ---
ED Note History of Present Illness Stated Complaint: RIGHT LEG LACERATION Chief Complaint: Laceration/Avulsion Time Seen by MD: 14:43 Dictation: PATIENT IS A 63-YEAR-OLD MALE COMING IN TODAY WITH COMPLAINTS OF A LACERATION WITH A SKILL SAW THAT HE DROPPED ON HIS RIGHT THIGH 30 MINUTES PRIOR TO ARRIVAL. PATIENT PLACED IN THE IMMEDIATE TOURNIQUET TO THE LEG AND CAME TO THE HOSPITAL. HE STATES HE HAS A PREDIABETIC, LAST TETANUS SHOT IS UNKNOWN. TOURNIQUET WAS REMOVED IMMEDIATELY WITH NO ACTIVE BLEEDING AT THIS TIME. DISTAL NEUROVASCULAR CMS INTACT. NO TRAUMA ALERT CRITERIA AT THIS TIME. Allergies: Coded Allergies: No Known Drug Allergies (Unverified Allergy, Unknown, 09/16/17) Home Meds Active Scripts Mupirocin (Bactroban 2% Oint) 2 % Oint, 1 APPL TP TID for 5 Days, #15 GM 0 Refills apply to affected area(s) Prov:GILMER PEREZ NP 10/08/24 Cephalexin (Cephalexin) 500 Mg Tablet, 1 TAB PO QID for 7 Days, #28 TAB 0 Refills Prov:GILMER PEREZ NP 10/08/24 Ibuprofen (Ibuprofen 800 mg Tab) 800 Mg Tab, 800 MG PO Q8H PRN for fever or pain, #30 TAB 0 Refills Prov:GILMER PEREZ NP 10/08/24 Telmisartan (Telmisartan) 80 Mg Tablet, 80 MG PO DAILY for 30 Days, #30 TAB Prov:JENNIFER HENNESSY NP 11/15/23 Nifedipine (Nifedipine ER) 30 Mg Tab.er.24, 60 MG PO DAILY for 30 Days, #30 TAB Prov:JENNIFER HENNESSY NP 11/15/23 Hydralazine HCl (Apresoline) 25 Mg Tab, 25 MG PO TID for 30 Days, #90 TAB Prov:JENNIFER HENNESSY NP 11/15/23 Reported Medications Rosuvastatin Calcium (Rosuvastatin Calcium) 40 Mg Tablet, 40 MG PO HS, TAB 11/13/23 Ezetimibe (Ezetimibe) 10 Mg Tablet, 10 MG PO HS, TAB 11/13/23 Metformin HCl (Metformin HCl) 500 Mg/5 Ml Solution, 500 MG PO BID, ML 11/13/23 Valacyclovir HCl (Valacyclovir) 500 Mg Tablet, 500 MG PO DAILY, TAB 11/13/23 Metoprolol Succinate (Metoprolol Succinate) 25 Mg Tab.er.24h, 25 MG PO DAILY, TAB 11/13/23 Aspirin (ASPIRIN 81 MG ECTAB) 81 Mg Ectab, 81 MG PO DAILY, TAB.EC 10/26/17 Past Medical History Past Medical History: CVA, Diabetes-Type II, High Cholesterol, Heart Disease, Hypertension Surgical History: CABG RN Note Reviewed/Agreed w/PFSH: Yes Review of System Dictation CONSTITUTIONAL: NEGATIVE EXCEPT FOR HPI HEAD/FACE: NEGATIVE EXCEPT FOR HPI EENT: NEGATIVE EXCEPT FOR HPI RESPIRATORY: NEGATIVE EXCEPT FOR HPI GASTROINTESTINAL/ABDOMINAL: NEGATIVE EXCEPT FOR HPI GENITOURINARY: NEGATIVE EXCEPT FOR HPI MUSCULOSKELETAL: NEGATIVE EXCEPT FOR HPI LACERATION TO DISTAL RIGHT THIGH, SUPERIOR TO KNEE JOINT INTEGUMENTARY: NEGATIVE EXCEPT FOR HPI NEUROLOGICAL/PSYCH: NEGATIVE EXCEPT FOR HPI HEMATOLOGIC/LYMPHATIC: NEGATIVE EXCEPT FOR HPI ALL SYSTEMS NEGATIVE, EXCEPT NOTED ABOVE. 13 POINT REVIEW OF SYSTEMS ASSESSED AND ALL NEGATIVE EXCEPT FOR ABOVE. Initial Vital Sign VS Vital Signs Date Time Temp Pulse Resp B/P (MAP) Pulse Ox O2 Delivery O2 Flow Rate FiO2 10/08/24 14:45 98.4 50 16 107/61 96 Room Air 10/08/24 16:26 0 21 Physical Exam Dictation VITAL SIGNS REVIEWED GENERAL APPEARANCE: ALERT, ORIENTED X 3, MODERATE ACUTE DISTRESS, WELL DEVELOPED, NOURISHED. HEAD AND FACE: NON-TRAUMATIC. EYES: PERRL, PINK CONJUNCTIVAS, EYELID NO TRAUMA, ANTERIOR CHAMBER WITH ARCUS SENILIS. EARS: PINNAS INTACT AND NO SIGNS OF TRAUMA OR ERYTHEMA EAR CANALS CLEAR AND NO DISCHARGE TM NO ERYTHEMA NOSE: NO DISCHARGE, NO BLEEDING. OROPHARYNX: MOUTH NORMAL, TONGUE PINK, PHARYNX CLEAR,NO ERYTHEMA, TONSILS NO EXUDATES, NO ABSCESSES NOTED, MUCOUS MEMBRANE MOIST NECK: SUPPLE, NON-TENDER, NO THYROMEGALY, NO MASSES, NO JVD, NO BRUITS BREAST:DEFERRED CHEST:NO TENDERNESS, NO CREPITUS, NO PARADOXICAL MOVEMENT, NO RETRACTIONS LUNGS:CLEAR, WELL-VENTILATED, SYMMETRIC, NO RALES, NO WHEEZING, NO RHONCHI, NO STRIDOR, GOOD BREATH SOUNDS BILATERALLY HEART: REGULAR RATE, REGULAR RHYTHM, NO MURMUR, NO GALLOPS VASCULAR: NO PERIPHERAL EDEMA, ABDOMEN: SOFT, POSITIVE BOWEL SOUNDS, NONDISTENDED, NO GUARDING, NONTENDER, NO REBOUND, NO MASSES NO HEPATOMEGALY, NO SPLENOMEGALY, NO PAZ'S SIGN, NO HERNIAS. RECTAL: DEFERRED GENITAL: DEFERRED NEUROLOGICAL: NORMAL SPEECH, MOTOR FUNCTION INTACT, SENSORY FUNCTION INTACT MUSCULOSKELETAL: NECK NONTENDER, FULL RANGE OF MOTION, BACK NONTENDER, FULL RANGE OF MOTION, EXTREMITIES: NONTENDER, FULL RANGE OF MOTION SKIN: COLOR PINK, LACERATION TO DISTAL RIGHT THIGH, SUPERIOR TO KNEE. NO ACTIVE BLEEDING ONCE TOURNIQUET WAS REMOVED. DISTAL NEUROVASCULAR CMS GROSSLY INTACT LYMPHATIC: DEFERRED Results (Laboratory/Radiology) Laboratory/Radiology EXTREMITY DEMONSTRATES NO FREE AIR OR BONY INVOLVEMENT. Labs Reviewed?: Yes ED Course ED Course Orders Procedure Category Date Status Time Saline Lock Iv CPOE 10/08/24 Transmitted 14:54 Neomy PHA 10/08/24 Complete Sulf/Bacitra/Polymyxin 15:00 Tetanus,Diphtheria PHA 10/08/24 Complete Tox [Adult] (Diphther 15:00 Cefazolin Sodium 1 Gm PHA 10/08/24 Complete Vial (Ancef 1 Gm V 14:54 Morphine 2mg Syg PHA 10/08/24 Complete (Morphine 2mg Syg) 15:00 Ondansetron 4mg Inj PHA 10/08/24 Complete (Zofran 4mg Inj) 15:00 Ct Low Ext W/O CT 10/08/24 Resulted Contrast 14:54 Current Medications Medications (Trade) Dose Ordered Sig/Lindsey Route PRN Reason Start Time Stop Time Status Last Admin Dose Admin Cefazolin Sodium (ANCEF 1 gm vial) 1 gm ONCE STAT IVPB 10/08/24 14:54 10/08/24 15:04 DC 10/08/24 16:58 Morphine Sulfate (morPHINE 2MG SYG) 2 mg ONCE ONCE IVP 10/08/24 15:00 10/08/24 15:04 DC 10/08/24 16:58 Neomycin/ Polymyxin/ Bacitracin (Triple Antibiotic Ointment) 1 appl ONCE ONCE TP 10/08/24 15:00 10/08/24 15:03 DC 10/08/24 15:00 Ondansetron HCl (zoFRAN 4MG INJ) 4 mg ONCE ONCE IVP 10/08/24 15:00 10/08/24 15:04 DC 10/08/24 16:58 Tetanus/ Diphtheria Toxoids Adsorbed (DiphthERIA-teTANUS TOXOID [ADULT]/ DECAVAC) 0.5 ml ONCE ONCE IM 10/08/24 15:00 10/08/24 15:03 DC 10/08/24 17:00 Vital Signs Date Time Temp Pulse Resp B/P (MAP) Pulse Ox O2 Delivery O2 Flow Rate FiO2 10/08/24 16:26 98.8 78 20 134/65 98 Room Air* 0 21 10/08/24 14:45 98.4 50 16 107/[address] PERFORMED TO RULE OUT MUSCLE COMPARTMENT, FREE AIR OR BONY INVOLVEMENT CT NEGATIVE LACERATION CLOSED WITH TWO 0 NYLON TOLERATED WELL DISTAL NEUROVASCULAR CMS INTACT RIGHT LEG Medical Decision Making MDM MEDICAL DECISION-MAKING BASED ON CT OF THE LEG TO RULE OUT BONY IN MOMENT VERSUS FREE AIR CT NEGATIVE TETANUS SHOT WAS UPDATED, PATIENT RECEIVED ANCEF 1 G IV PIGGYBACK. LACERATION CLOSED TO LEG PATIENT AND HIS SON GIVEN WOUND CARE INSTRUCTIONS. Procedure Procedure Dictation: 1600/PROCEDURE EXPLAINED TO PATIENT HE AGREED TO PROCEED 9 CM LACERATION TO DISTAL RIGHT THIGH. USE MARCAINE 1% PLAIN 8 ML FOR LOCAL ANESTHETIC CLEANSED THOROUGHLY WITH WOUND CLEANSER NO DEBRIDEMENT REQUIRED CLOSED WITH 14 2.0 ETHILON SIMPLE INTERRUPTED SUTURES SINGLE-LAYER LAYER CLOSURE PATIENT TOLERATED WELL DX & DISP Disposition: Discharge Departure Impression: Primary Impression: Laceration of right thigh without complication Additional Impression: Contact with powered saw as cause of accidental injury Condition: Stable Scripts Mupirocin (Bactroban 2% Oint) 2 % Oint 1 APPL TP TID for 5 Days, #15 GM 0 Refills apply to affected area(s) Prov: GILMER PEREZ SKILLED LABORER 10/08/24 Cephalexin (Cephalexin) 500 Mg Tablet 1 TAB PO QID for 7 Days, #28 TAB 0 Refills Prov: GILMER PEREZ NP 10/08/24 Ibuprofen (Ibuprofen 800 mg Tab) 800 Mg Tab 800 MG PO Q8H PRN for fever or pain, #30 TAB 0 Refills Prov: GILMER PEREZ NP 10/08/24 Additional Instructions: FOLLOW-UP WITH PRIMARY CARE PROVIDER IN 1 TO 2 DAYS. TAKE MEDICATIONS DIRECTED HERE IN THE EMERGENCY ROOM. OKAY TO CONTINUE HOME MEDICATIONS UNLESS OTHERWISE DISCUSSED DURING YOUR VISIT IN THE EMERGENCY ROOM TODAY. RETURN TO YOUR NEAREST EMERGENCY ROOM IF SYMPTOMS WORSEN OR IF THERE IS NO IMPROVEMENT. CALL 911 IF YOU NEED IMMEDIATE ASSISTANCE. TAKE TYLENOL OR MOTRIN [id number] NEEDED AND IF NO CONTRAINDICATIONS ARE PRESENT. INCREASE ORAL HYDRATION. A WOUND CULTURE OR URINE CULTURE WAS ORDERED HERE IN THE EMERGENCY ROOM DEPARTMENT PLEASE FOLLOW-UP WITH PRIMARY CARE PROVIDER AND ADVISE THEM TO GET REPEAT PORTS FROM OUR FACILITY. IF YOU HAD ANY SHUKRI WRAP/SPLINTS TH AT WERE APPLIED HERE, PLEASE DO NOT REMOVE THEM UNTIL YOU SEE YOUR PRIMARY CARE OR SPECIALTY. KEEP LACERATION REPAIR CLEAN AND DRY. , APPLY BACTROBAN OINTMENT 3 TIMES A DAY FOR FIVE DAYS WITH DRESSING. SUTURES OUT IN 10-14 DAYS. Referrals: SOPHY DEXTER MD (PCP) Time of Disposition: 16:15 I have reviewed the case, and I agree with, Diagnosis and Plan I performed a substantive portion of the visit. I have reviewed and personally made and approve the management plan that is documented in the notes by myself with XI/resident. I acknowledged full responsibility for the patient's managem ent plan. GILMER PEREZ NP Oct 08, 2024 14:59 CAMMY MUNSON DO Oct 08, 2024 18:41
[2024-10-08] MEDS: NEOMY SULF/BACITRA/POLYMYXIN B 1 EACH PACKET TP ONE (15:00)
--- NOTE | 2024-10-08 15:54 | HMCIMG ---
CT LOW EXT W/O CONTRAST HISTORY: LACERATION TO RIGHT ANTERIOR THIGH SUPERIOR TO KNEE WITH CHAIN SAW TECHNIQUE: CT LOW EXT W/O CONTRAST. Axial images of the right lower extremity were performed from the hip to the proximal calf. Coronal and sagittal reformats were obtained. FINDINGS/IMPRESSION: No displaced fracture or dislocation is seen. Mild soft tissue swelling/laceration seen in the medial aspect of the distal thigh. Vascular calcifications are seen. No obvious fluid collection or hematoma is seen.
[2024-10-08] MEDS ORDERED: MUPI22O TP (16:17)
[2024-10-08] MEDS ORDERED: IBUP-2077 PO (16:17)
[2024-10-08] MEDS ORDERED: CEPH500T PO (16:17)
[2024-10-08 16:26] VITALS: BP 134/65; PULSE 78; RESP 20; TEMP 98.8; O2SAT 98
[2024-10-08] MEDS: morPHINE 2 MG SYG IVP ONE (16:58)
[2024-10-08] MEDS: ondanSETRON 4MG INJ IVP ONE (16:58)
[2024-10-08] MEDS: ceFAZolin SODIUM 1 GM VIAL IVPB STA (16:58)
[2024-10-08] MEDS: teTANUS/diphthERIA TOXOID [ADULT] 0.5 ML VIAL IM ONE (17:00)
== END 2024-10-08 17:01 | disposition home or self-care (01) ==
LOC: EDH 14:36
DX: S71.111A Laceration without foreign body, right thigh, initial encounter (principal); E11.9 Type 2 diabetes mellitus without complications; E78.00 Pure hypercholesterolemia, unspecified; I10 Essential (primary) hypertension; Z79.624 Long term (current) use of inhibitors of nucleotide synthesis; Z79.82 Long term (current) use of aspirin; Z79.84 Long term (current) use of oral hypoglycemic drugs; Z79.899 Other long term (current) drug therapy; Z86.73 Personal history of transient ischemic attack (TIA), and cerebral infarction without residual deficits; Z95.1 Presence of aortocoronary bypass graft; W27.0XXA Contact with workbench tool, initial encounter; Y93.89 Activity, other specified; Y92.89 Other specified places as the place of occurrence of the external cause; Y99.8 Other external cause status
CPT/HCPCS: 99285; 96374; 73700; 96375; 90714; 90471; 12004; J0690; J2270; J2405